=== PATIENT | female | born 1980 | race Caucasian/White ===

== ENCOUNTER → 2017-03-22 | Outpatient (CLI) | payer OTHER ==
[2017-04-03 17:37] LABS: HIV CONSENT ON FILE IN EMP HLTH
[2017-04-03 17:40] LABS: HEPATITIS C RNA TMA QUAL Not detected
== END | disposition home or self-care (01) ==
LOC: C.EMPHLA 13:10
PROVIDERS: ATTEND Emergency Medicine
DX: Z02.89 Encounter for other administrative examinations (principal)